=== PATIENT | male | born 1950 | race Caucasian/White ===

== ENCOUNTER 2016-05-10 11:16 | Observation (INO) | payer MEDICARE ==
[2016-05-10] MEDS ORDERED: Morphine INJ* 4 MG/ML 1 ML SYRINGE IV ONE (12:30)
[2016-05-10] MEDS ORDERED: Ondansetron INJ* 2 MG/ML VIAL IV ONE (12:30)
[2016-05-10] MEDS ORDERED: Pantoprazole IV* 40 MG IV ONE (12:30)
[2016-05-10 12:46] LABS: Hematocrit 43 % (42-52); Hemoglobin 14.8 g/dl (14.0-18.0); Mean Corpuscular HGB Conc 34 g/dl (31-36); Mean Corpuscular Hemoglobin 33 pg (27-31); Mean Corpuscular Volume 95 fL (80-94); Mean Platelet Volume 8 um3 (7.4-10.4); Red Blood Count 4.55 10^6/ul (4.0-5.4); Red Cell Distribution Width 14 % (10.5-15); White Blood Count 10.1 10^3/ul (3.5-10.8)
[2016-05-10 12:56] LABS: Albumin 4.2 g/dL (3.2-5.2); BUN/Creatinine Ratio 17.6 (8-20); C Reactive Protein 1.56 mg/L (< 5.00); Calcium 9.6 mg/dL (8.6-10.3); EGFR African American 107.2 (>60); EGFR Non-African American 83.4 (>60); Globulin 2.9 g/dL (2-4); Magnesium 1.6 mg/dL (1.9-2.7); Potassium 3.9 mmol/L (3.5-5.0); Total Bilirubin 0.5 mg/dL (0.2-1.0); Total Protein 7.1 g/dL (6.4-8.9); Troponin I 0.01 ng/mL (<0.04)
[2016-05-10] MEDS: NS 0.9% 1000 ML* 3,000 ML IV ONE ×3 (13:04→15:46)
[2016-05-10] MEDS ORDERED: Iohexol 300* (CONTRAST) 10 ML SDV IV ONE (14:07)
--- NOTE | 2016-05-10 14:29 | RAD ---
INDICATION: Abdominal pain and vomiting. Question pancreatitis and perforated viscus/gallbladder. COMPARISON: October 26, [address] TECHNIQUE: Multidetector CT images were obtained from the lung bases to the ischial tuberosities with 97 IV and oral contrast. Multiplanar reformation. REPORT: Moderate retrocardiac hiatal hernia results in mild subsegmental atelectasis at the medial bilateral lung bases. Lung volumes appear elevated with increased AP thoracic diameter. Typical location focal fatty infiltration at the LEFT lateral hepatic segment flanking the fissure for the ligamentum teres. Upper normal liver size. Negative for biliary dilatation. No CT abnormality of the gallbladder. Patent portal, splenic, and superior mesenteric veins. Unremarkable pancreas and spleen. Aside from the hiatal hernia the upper GI is unremarkable. Negative for CT abnormality of the small bowel, or appendix visualized extending medial from the cecum. A solitary sigmoid diverticulosis visualized. Negative for findings of acute diverticulitis. Negative for ascites or free air. Small fat-containing umbilical hernia without inflammatory change. Small fat-containing direct appearing LEFT inguinal hernia without inflammatory change. Normal adrenal glands. Unremarkable kidneys with symmetric nephrograms and pyelograms. Unremarkable ureters and distended urinary bladder. Enlarged prostate. Symmetric seminal vesicles. Normal sized portal caval lymph node visualized. 0.7 cm short axis RIGHT retrocrural lymph node is unchanged. Negative for lymphadenopathy. Atherosclerotic calcification of normal diameter abdominal aorta and common iliac arteries. Physiologic distention of the IVC. Normal variant retroaortic LEFT renal vein. RIGHT hip prosthesis. Polyarticular degenerative arthropathy. Degenerative spondylosis is prominent at L4-L5. Negative for suspicious focal osseous lesions. IMPRESSION: 1. Moderate retrocardiac hiatal hernia increase in size from the 2008 exam. 2. No evidence for bowel obstruction or acute inflammation of the alimentary tract. Normal appendix documented. 3. No CT abnormality of the gallbladder. Negative for biliary dilatation. Correlate with clinical assessment and consider ultrasound for further assessment if deemed appropriate. 4. Negative for obstructive uropathy.
[2016-05-10] MEDS ORDERED: Metoclopramide IV* 5 MG/ML 2 ML VIAL IV SLOW PU ONE (15:39)
[2016-05-10] MEDS ORDERED: HYDROmorphone* 1 MG/ML 1 ML SYR IV SLOW PU ONE (15:39)
--- NOTE | 2016-05-10 15:48 | ED ---
Jovan Rivas Billy, scribed for Franco Xie MD on 05/10/16 at 1227 . Abdominal Pain/Male - HPI Summary HPI Summary: Patient is a 65 year-old male BIBA to [facility] for evaluation of epigastric pain. Patient woke up at 0200 with a headache and abdominal pain as well as numerous episodes of nausea and vomiting. He states that his headache resolved earlier this morning but his nausea and vomiting persists. Abdominal pain is nonradiating. He reports loose black stools several days ago and denies any iron supplement or pepto-bismol use. Denies chest pain or SOB. His had the same dinner as him last night and has no symptoms. Patient denies any LOC, urinary symptoms, or coffee ground emesis. Patient has a history of ulcers. - History of Current Complaint Chief Complaint: EDAbdPain Stated Complaint: VOMITING Time Seen by Provider: 05/10/16 11:54 Hx Obtained From: Patient Onset/Duration: Gradual Onset, Lasting Hours, Still Present Timing: Constant Severity Initially: Moderate Severity Currently: Moderate Pain Intensity: 5 Pain Scale Used: 0-10 Numeric Location: Epigastric Radiates: No Aggravating Factor(s): Nothing Alleviating Factor(s): Nothing Associated Signs And Symptoms: Positive: Diaphoresis, Nausea, Vomiting. Negative: Back Pain, Urinary Symptoms - Allergies/Home Medications Allergies/Adverse Reactions: Allergies Allergy/AdvReac Type Severity Reaction Status Date / Time No Known Allergies Allergy Verified 10/02/14 10:12 Home Medications: Home Medications Lisinopril TAB* [Prinivil TAB*] 20 mg PO DAILY 05/10/16 [History Confirmed 05/10] Omeprazole CAP* [Prilosec CAP* 20 MG] 20 mg PO DAILY 05/10/16 [History Confirmed 05/10/16] traZODone TAB* [Desyrel TAB*] 100 mg PO BEDTIME 05/10/16 [History Confirmed ] PMH/Surg Hx/FS Hx/Imm Hx GI History: Reports: Hx Ulcer Neurological History: Reports: Hx Headaches - Immunization History Date of Tetanus Vaccine: Unk Date of Influenza Vaccine: None Infectious Disease History: No Infectious Disease History: Denies: Traveled Outside the [place] in Last 30 Days - Family History Family History: Uncle from stroke, mother with AAA. - Social History Alcohol Use: Daily Substance Use Type: Reports: Marijuana Smoking Status (MU): Former Smoker Review of Systems Positive: Chills, Skin Diaphoresis. Negative: Fever Negative: Palpitations, Chest Pain Positive: Abdominal Pain, Vomiting, Nausea Negative: dysuria, frequency, urgency Positive: Headache All Other Systems Reviewed And Are Negative: Yes Physical Exam - Summary Physical Exam Summary: The patient is thin, diaphoretic, pale-looking male in mild distress. Decreased skin turgor. HEENT: The head is normocephalic and atraumatic. The pupils are equal and reactive. The sclerae and conjunctivae are clear, not jaundiced, not pale, and without drainage. Nares are patent and without drainage. Mouth reveals dry mucous membranes and the throat is without erythema and exudate. The external ears are intact. The ear canals are patent and without drainage. The tympanic membranes are intact. Neck is supple with full range of motion and non-tender. There are no carotid bruits. There is no neck vein distension. Respiratory: Chest is non-tender. Lungs are clear to auscultation and breath sounds are symmetrical and equal. Cardiovascular: Hear is regular rate and rhythm. There is no murmur or rub auscultated. There is no peripheral edema and pulses are symmetrical and equal. Abdomen: There is marked epigastric and RUQ tenderness. No tenderness to percussion otherwise. There are decreased bowel sounds heard in all four quadrants and there is no organomegaly palpated. No CVA tenderness. Rectal: Rectal exam revealed brown stool with no masses, melena, or blood appreciated. Musculoskeletal: There is no back pain noted. Tender to right proximal tibia without swelling or deformity. There is 3 sec capillary refill. There is no peripheral edema or calf tenderness elicited. Neurological: Patient is alert and oriented to person, place and time. The patient has symmetrical motor strength in all four extremities. Cranial nerves are grossly intact. Deep tendon reflexes are symmetrical and equal in all four extremities. Psychiatric: The patient has an appropriate affect and does not exhibit any anxiety or depression. Triage Information Reviewed: Yes Vital Signs On Initial Exam: Initial Vitals Temp Pulse Resp BP Pulse Ox 97.1 F 61 12 173/98 98 05/10/16 11:17 05/10/16 11:17 05/10/16 11:17 05/10/16 11:17 03/31/17 11:17 Vital Signs Reviewed: Yes Diagnostics - Vital Signs Vital Signs Temp Pulse Resp BP Pulse Ox 05/10/16 11:17 97.1 F 61 12 173/98 98 - Laboratory Lab Results: Lab Results 05/10/16 05/10/16 05/10/16 Range/Units 11:30 11:30 11:30 WBC 10.1 (3.5-10.8) 10^3/ul RBC 4.55 (4.0-5.4) 10^6/ul Hgb 14.8 (14.0-18.0) g/dl Hct 43 (42-52) % MCV 95 H (80-94) fL MCH 33 H (27-31) pg MCHC 34 (31-36) g/dl RDW 14 (10.5-15) % Plt Count 302 (150-450) 10^3/ul MPV 8 (7.4-10.4) um3 Neut % (Auto) 84.1 H (38-83) % Lymph % (Auto) 11.3 L (25-47) % [place] % (Auto) 3.7 (1-9) % Eos % (Auto) 0.4 (0-6) % Baso % (Auto) 0.5 (0-2) % Absolute Neuts (auto) 8.5 H (1.5-7.7) 10^3/ul Absolute Lymphs (auto) 1.1 (1.0-4.8) 10^3/ul Absolute Monos (auto) 0.4 (0-0.8) 10^3/ul Absolute Eos (auto) 0 (0-0.6) 10^3/ul Absolute Basos (auto) 0.1 (0-0.2) 10^3/ul Absolute Nucleated RBC 0 10^3/ul Nucleated RBC % 0 INR (Anticoag Therapy) (0.89-1.11) Sodium 138 (133-145) mmol/L Potassium 3.9 (3.5-5.0) mmol/L Chloride 104 (101-111) mmol/L Carbon Dioxide 24 (22-32) mmol/L Anion Gap 10 (2-11) mmol/L BUN 16 (6-24) mg/dL Creatinine 0.91 (0.67-1.17) mg/dL Est GFR ( Amer) 107.2 (>60) Est GFR (Non-Af Amer) 83.4 (>60) BUN/Creatinine Ratio 17.6 (8-20) Glucose 174 H (70-100) mg/dL Lactic Acid 2.0 (0.5-2.0) mmol/L Calcium 9.6 (8.6-10.3) mg/dL Magnesium 1.6 L (1.9-2.7) mg/dL Total Bilirubin 0.50 (0.2-1.0) mg/dL AST 15 (13-39) U/L ALT 8 (7-52) U/L Alkaline Phosphatase 69 (34-104) U/L Ammonia (16-53) mol/L Total Creatine Kinase 143 (10-223) U/L Troponin I 0.01 (<0.04) ng/mL C-Reactive Protein 1.56 (< 5.00) mg/L Total Protein 7.1 (6.4-8.9) g/dL Albumin 4.2 (3.2-5.2) g/dL Globulin 2.9 (2-4) g/dL Albumin/Globulin Ratio 1.4 (1-3) Amylase 58 (29-103) U/L Lipase 36 (11.0-82.0) U/L 05/10/16 05/10/16 Range/Units 11:30 11:30 WBC (3.5-10.8) 10^3/ul RBC (4.0-5.4) 10^6/ul Hgb (14.0-18.0) g/dl Hct (42-52) % MCV (80-94) fL MCH (27-31) pg MCHC (31-36) g/dl RDW (10.5-15) % Plt Count (150-450) 10^3/ul MPV (7.4-10.4) um3 Neut % (Auto) (38-83) % Lymph % (Auto) (25-47) % [place] % (Auto) (1-9) % Eos % (Auto) (0-6) % Baso % (Auto) (0-2) % Absolute Neuts (auto) (1.5-7.7) 10^3/ul Absolute Lymphs (auto) (1.0-4.8) 10^3/ul Absolute Monos (auto) (0-0.8) 10^3/ul Absolute Eos (auto) (0-0.6) 10^3/ul Absolute Basos (auto) (0-0.2) 10^3/ul Absolute Nucleated RBC 10^3/ul Nucleated RBC % INR (Anticoag Therapy) 0.93 (0.89-1.11) Sodium (133-145) mmol/L Potassium (3.5-5.0) mmol/L Chloride (101-111) mmol/L Carbon Dioxide (22-32) mmol/L Anion Gap (2-11) mmol/L BUN (6-24) mg/dL Creatinine (0.67-1.17) mg/dL Est GFR ( Amer) (>60) Est GFR (Non-Af Amer) (>60) BUN/Creatinine Ratio (8-20) Glucose (70-100) mg/dL Lactic Acid (0.5-2.0) mmol/L Calcium (8.6-10.3) mg/dL Magnesium (1.9-2.7) mg/dL Total Bilirubin (0.2-1.0) mg/dL AST (13-39) U/L ALT (7-52) U/L Alkaline Phosphatase (34-104) U/L Ammonia 31 (16-53) mol/L Total Creatine Kinase (10-223) U/L Troponin I (<0.04) ng/mL C-Reactive Protein (< 5.00) mg/L Total Protein (6.4-8.9) g/dL Albumin (3.2-5.2) g/dL Globulin (2-4) g/dL Albumin/Globulin Ratio (1-3) Amylase (29-103) U/L Lipase (11.0-82.0) U/L Result Diagrams: 05/10/16 11:30 05/10/16 11:30 Lab Statement: Any lab studies that have been ordered have been reviewed, and results considered in the medical decision making process. - CT abd/pel w CT Interpretation Completed By: Radiologist - 1. Moderate retrocardiac hiatal hernia increase in size from the 2008 exam. 2. No evidence for bowel obstruction or acute inflammation of the alimentary tract. Normal appendix documented. 3. No CT abnormality of the gallbladder. Negative for biliary dilatation. Correlate with clinical assessment and consider ultrasound for further assessment if deemed appropriate. 4. Negative for obstructive uropathy. - EKG 1416 EKG Interpretation: NSR 78 bpm, LAD, nonspecific ST changes, no STEMI Re-Evaluation - Re-Evaluation First Eval Re-Evaluation Time: 15:02 Comment: Labs and imaging reviewed. Patient vomited on re-evaluation, so we will consult hospitalist for admission. Abdominal Pain Fem Course/Dx - Course Assessment/Plan: 65 y/o male coming to the ED for evaluation of abdominal pain and N/V. In the ED course, pt was given morphine, protonix, and zofran. Labs reviewed, troponin is 0.01. CT of the abd/pel showed findings as read by radiologist. EKG shows NSR with LAD and nonspecific ST changes. Patient care discussed with Dr. Meeks, who accepted the patient for admission. - Diagnoses Differential Diagnosis/HQI/PQRI: Appendicitis, Bowel Obstruction, Diverticulitis , Gall Bladder Disease, Pancreatitis, Peptic Ulcer Disease Provider Diagnoses: Abdominal pain, Vomiting, Dehydration - Provider Notifications Discussed Care Of Patient With: Dr. Meeks (hospitalist) @ 1520: accepted admission. Discharge - Discharge Plan Condition: Stable Disposition: ADMITTED TO [facility] documentation as recorded by the Jovan gamble Billy accurately reflects the service I personally performed and the decisions made by me, Franco Xie MD.
[2016-05-10] MEDS ORDERED: Magnesium Sulfate 2 GM IV* 2 GM/50 ML BAG IVPB ONE (16:08)
[2016-05-10] MEDS ORDERED: Ondansetron INJ* 2 MG/ML VIAL IV PRN (17:15)
[2016-05-10] MEDS: NS 0.9% 1000 ML* 1,000 ML IV SCH (17:34)
[2016-05-10] MEDS ORDERED: Pneumococcal Vac Polyvalent* 0.5 ML VIAL IM ONE (19:00)
[2016-05-10] MEDS ORDERED: Influenza VAC *QUAD* 2016-17* 0.5 ML SYRINGE IM ONE (19:00)
[2016-05-10] MEDS ORDERED: traZODone TAB* 100 MG PO SCH (21:00)
[2016-05-10] MEDS: Heparin VIAL(*) 5000 UNITS/ML VIAL (FIVE THOUSAND) SUBCUT SCH (21:28)
--- NOTE | 2016-05-10 22:45 | HP ---
HOSPITAL MEDICINE HISTORY AND PHYSICAL: DATE OF ADMISSION: 05/10/16 PRIMARY CARE PHYSICIAN: Mino Demarco MD ATTENDING PHYSICIAN: Nichole Jack DO* (dictation provided by Katy Daugherty NP) PRIMARY COMPLAINT: Nausea, vomiting, and abdominal pain. HISTORY OF PRESENT ILLNESS: Mr. Jiang is a 65-year-old male with a past medical history of hypertension and GERD who presents today to the hospital with concern for nausea, vomiting, and abdominal pain. Mr. Jiang states that he was in his normal state of health until 2 a.m. this morning when he had the sudden onset of nausea and vomiting associated with abdominal pain in the epigastric region. He vomited multiple times through the night and ultimately decided to come to the emergency room when the pain and the nausea did not resolve. He denies any associated complaints of chest pain and shortness of breath. He has been having some diarrhea, but he states it has been very mild. He has no recent sick contacts. He has no unusual food ingestions as he ate the same thing his has eaten recently and she is not unwell. In the emergency room, Mr. Jiang had a CT of the abdomen and pelvis, which showed no acute abnormalities. He had no acute laboratory abnormalities and his vital signs were stable; however, he continued to have persistent nausea and vomiting and inability to tolerate oral intake with severe pain and therefore, plans are for him to be observed in the hospital overnight. PAST MEDICAL HISTORY: 1. Hypertension. 2. GERD. MEDICATIONS: 1. Lisinopril 20 mg p.o. daily. 2. Omeprazole 20 mg p.o. daily. 3. Trazodone 100 mg p.o. at bedtime. ALLERGIES: No known drug allergies. FAMILY HISTORY: Mother had a brain aneurysm. Father is unknown as they are estranged. SOCIAL HISTORY: The patient is a long-term smoker, but quit 6 weeks ago. Denies any alcohol or drug use. He quit drinking in 1980. He lives with his who is the health care proxy. REVIEW OF SYSTEMS: A 14-point review of systems was completed with Mr. Jiang and all those not mentioned above are negative. PHYSICAL EXAMINATION GENERAL: Mr. Jiang is sitting up in the bed. He is in no acute distress. He is calm and cooperative to my examination. VITAL SIGNS: Temperature 97.1, heart rate 70, respiratory rate 12, O2 saturation 96% on room air, and blood pressure 137/94. LUNGS: Clear to auscultation bilaterally with no accessory muscle use and good aeration. HEART: S1, S2. No murmur, rub, or gallop and regular. ABDOMEN: Soft. He is nontender now, but he has recently been given narcotic for pain relief. Bowel sounds are positive. EXTREMITIES: No cyanosis or edema. NEUROLOGIC: He is alert and oriented x3. He moves all extremities equally. There is no facial asymmetry or focal weakness. Extraocular movements are intact. SKIN: Intact. DIAGNOSTIC STUDIES/LAB DATA: Sodium 138, potassium 3.9, chloride 104, serum bicarbonate 24, BUN 10, creatinine 0.91, glucose 174, lactic acid 2.0, and magnesium 1.6. Troponin 0.01. CRP 1.56. WBC 10.0, hemoglobin 14, hematocrit 43, and platelet count 302. INR 0.93. Abdomen and pelvis CT is read as follows: "Moderate retrocardiac hiatal hernia increased in size from 2008 exam. No evidence for bowel obstruction or acute inflammation of the alimentary tract. Normal appendix documented. No CT abnormalities of gallbladder. Negative for biliary dilatation. Correlate with clinical assessment. Consider ultrasound for better assessment if deemed appropriate. Negative for obstructive uropathy." ASSESSMENT: Mr. Jiang is a 65-year-old male with past medical history of hypertension and gastroesophageal reflux disease who presents to the hospital with concern for nausea, vomiting, and abdominal pain with mild diarrhea. Plans are for observation overnight for the followin. Nausea, vomiting, and abdominal pain with mild diarrhea: I suspect the patient has a mild case of viral gastroenteritis; however, he has had significant vomiting in the emergency room, inability to tolerate oral intake as well as continued abdominal pain. I think he warrants observation in the hospital overnight for symptom management and for the development of anymore significant symptoms. The patient will have Zofran available p.r.n. and pain medications as needed with retained abdominal assessment. 2. Hypertension: Continue lisinopril. 3. DVT prophylaxis: Heparin subcu. 4. Disposition: To medical floor. 5. Code status: Full code. TIME SPENT: Approximately 60 minutes was spent in the admission of this patient , more than half of the time was spent with the patient at the bedside reviewing the events leading up to this hospitalization, performing the physical examination, and reviewing my plan of care. KATY DAUGHERTY NP CC: Dr. Mino Demarco* [id number]/[facility] #: [id number] [place]
[2016-05-11] MEDS ORDERED: Acetaminophen TAB* 325 MG PO PRN (03:02)
[2016-05-11] MEDS: Heparin VIAL(*) 5000 UNITS/ML VIAL (FIVE THOUSAND) SUBCUT SCH (06:01)
[2016-05-11] MEDS: NS 0.9% 1000 ML* 1,000 ML IV SCH (06:04)
[2016-05-11 06:24] LABS: Urine Bilirubin Negative (Negative); Urine Glucose Negative (Negative); Urine Nitrite Negative (Negative)
[2016-05-11 07:59] VITALS: BP 146/89
[2016-05-11] MEDS ORDERED: Omeprazole CAP* 20 MG PO SCH (09:00)
[2016-05-11] MEDS ORDERED: Lisinopril TAB* 10 MG PO SCH (09:00)
--- NOTE | 2016-05-11 10:30 | PN ---
Subjective Date of Service: 05/11/16 Interval History: Mr. Jiang states that he is feeling well this morning. He denies nausea, vomiting, or abdominal pain and is eager for discharge to home. Objective Active Medications: Acetaminophen (Tylenol Tab*) 650 mg PO Q4H PRN Heparin Sodium (Porcine) (Heparin Vial(*)) 5,000 units SUBCUT Q8HR MARIA C Sodium Chloride (Ns 0.9% 1000 Ml*) 1,000 mls @ 100 mls/hr IV PER RATE MARIA C Lisinopril (Prinivil Tab*) 20 mg PO DAILY MARIA C Omeprazole (Prilosec Cap*) 20 mg PO DAILY MARIA C Ondansetron HCl (Zofran Inj*) 4 mg IV Q6H PRN Trazodone HCl (Desyrel Tab*) 100 mg PO BEDTIME MARIA C Vital Signs 05/10/16 05/10/16 05/10/16 15:46 16:00 17:38 Temperature 98.4 F Pulse Rate 70 57 Respiratory 18 12 16 Rate Blood Pressure 146/99 (mmHg) O2 Sat by Pulse 96 100 Oximetry 05/10/16 05/10/16 05/11/16 19:22 23:34 03:48 Temperature 98.3 F 98.5 F 98.5 F Pulse Rate 72 58 62 Respiratory 18 16 20 Rate Blood Pressure 146/89 138/79 149/81 (mmHg) O2 Sat by Pulse 100 98 93 Oximetry 05/11/16 07:40 Temperature 98.0 F Pulse Rate 50 Respiratory 16 Rate Blood Pressure 146/89 (mmHg) O2 Sat by Pulse 96 Oximetry Oxygen Devices in Use Now: None Appearance: Male sitting up in bed in NAD Respiratory: Symmetrical Chest Expansion and Respiratory Effort, Clear to Auscultation Cardiovascular: NL Sounds; No Murmurs; No JVD, No Edema Abdominal: NL Sounds; No Tenderness; No Distention Extremities: No Edema Skin: No Rash or Ulcers Neurological: Alert and Oriented x 3, NL Muscle Strength and Tone Nutrition: Taking PO's Result Diagrams: 05/10/16 11:30 05/10/16 11:30 Additional Lab and Data: Lab Results 05/10/16 05/10/16 05/10/16 Range/Units 11:30 11:30 11:30 WBC 10.1 (3.5-10.8) 10^3/ul RBC 4.55 (4.0-5.4) 10^6/ul Hgb 14.8 (14.0-18.0) g/dl Hct 43 (42-52) % MCV 95 H (80-94) fL MCH 33 H (27-31) pg MCHC 34 (31-36) g/dl RDW 14 (10.5-15) % Plt Count 302 (150-450) 10^3/ul MPV 8 (7.4-10.4) um3 Neut % (Auto) 84.1 H (38-83) % Lymph % (Auto) 11.3 L (25-47) % Kane % (Auto) 3.7 (1-9) % Eos % (Auto) 0.4 (0-6) % Baso % (Auto) 0.5 (0-2) % Absolute Neuts (auto) 8.5 H (1.5-7.7) 10^3/ul Absolute Lymphs (auto) 1.1 (1.0-4.8) 10^3/ul Absolute Monos (auto) 0.4 (0-0.8) 10^3/ul Absolute Eos (auto) 0 (0-0.6) 10^3/ul Absolute Basos (auto) 0.1 (0-0.2) 10^3/ul Absolute Nucleated RBC 0 10^3/ul Nucleated RBC % 0 INR (Anticoag Therapy) (0.89-1.11) Sodium 138 (133-145) mmol/L Potassium 3.9 (3.5-5.0) mmol/L Chloride 104 (101-111) mmol/L Carbon Dioxide 24 (22-32) mmol/L Anion Gap 10 (2-11) mmol/L BUN 16 (6-24) mg/dL Creatinine 0.91 (0.67-1.17) mg/dL Est GFR ( Amer) 107.2 (>60) Est GFR (Non-Af Amer) 83.4 (>60) BUN/Creatinine Ratio 17.6 (8-20) Glucose 174 H (70-100) mg/dL Lactic Acid 2.0 (0.5-2.0) mmol/L Calcium 9.6 (8.6-10.3) mg/dL Magnesium 1.6 L (1.9-2.7) mg/dL Total Bilirubin 0.50 (0.2-1.0) mg/dL AST 15 (13-39) U/L ALT 8 (7-52) U/L Alkaline Phosphatase 69 (34-104) U/L Ammonia (16-53) mol/L Total Creatine Kinase 143 (10-223) U/L Troponin I 0.01 (<0.04) ng/mL C-Reactive Protein 1.56 (< 5.00) mg/L Total Protein 7.1 (6.4-8.9) g/dL Albumin 4.2 (3.2-5.2) g/dL Globulin 2.9 (2-4) g/dL Albumin/Globulin Ratio 1.4 (1-3) Amylase 58 (29-103) U/L Lipase 36 (11.0-82.0) U/L 05/10/16 05/10/16 Range/Units 11:30 11:30 WBC (3.5-10.8) 10^3/ul RBC (4.0-5.4) 10^6/ul Hgb (14.0-18.0) g/dl Hct (42-52) % MCV (80-94) fL MCH (27-31) pg MCHC (31-36) g/dl RDW (10.5-15) % Plt Count (150-450) 10^3/ul MPV (7.4-10.4) um3 Neut % (Auto) (38-83) % Lymph % (Auto) (25-47) % Kane % (Auto) (1-9) % Eos % (Auto) (0-6) % Baso % (Auto) (0-2) % Absolute Neuts (auto) (1.5-7.7) 10^3/ul Absolute Lymphs (auto) (1.0-4.8) 10^3/ul Absolute Monos (auto) (0-0.8) 10^3/ul Absolute Eos (auto) (0-0.6) 10^3/ul Absolute Basos (auto) (0-0.2) 10^3/ul Absolute Nucleated RBC 10^3/ul Nucleated RBC % INR (Anticoag Therapy) 0.93 (0.89-1.11) Sodium (133-145) mmol/L Potassium (3.5-5.0) mmol/L Chloride (101-111) mmol/L Carbon Dioxide (22-32) mmol/L Anion Gap (2-11) mmol/L BUN (6-24) mg/dL Creatinine (0.67-1.17) mg/dL Est GFR ( Amer) (>60) Est GFR (Non-Af Amer) (>60) BUN/Creatinine Ratio (8-20) Glucose (70-100) mg/dL Lactic Acid (0.5-2.0) mmol/L Calcium (8.6-10.3) mg/dL Magnesium (1.9-2.7) mg/dL Total Bilirubin (0.2-1.0) mg/dL AST (13-39) U/L ALT (7-52) U/L Alkaline Phosphatase (34-104) U/L Ammonia 31 (16-53) mol/L Total Creatine Kinase (10-223) U/L Troponin I (<0.04) ng/mL C-Reactive Protein (< 5.00) mg/L Total Protein (6.4-8.9) g/dL Albumin (3.2-5.2) g/dL Globulin (2-4) g/dL Albumin/Globulin Ratio (1-3) Amylase (29-103) U/L Lipase (11.0-82.0) U/L Assess/Plan/Problems-Billing Assessment: Mr. Jiang is a 65 yo male with a PMH of hypertension who was admitted on with concern for intractable nausea/vomiting with viral gastroenteritis. - Patient Problems (1) Gastroenteritis Comment: Resolved. (2) Hypertension Comment: Continue lisinopril. Status and Disposition: OBV. Discharge to home.
--- NOTE | 2016-05-12 03:15 | DS ---
HOSPITAL MEDICINE DISCHARGE SUMMARY: DATE OF ADMISSION: 05/10/16 DATE OF DISCHARGE: 05/11/16 PRIMARY CARE PHYSICIAN: Mino Demarco MD ATTENDING PHYSICIAN: Nichole Jack DO *(dictation provided by Katy Daugherty NP) PRIMARY DIAGNOSIS: Viral gastroenteritis, resolved. SECONDARY DIAGNOSES: 1. Hypertension. 2. Gastroesophageal reflux disease. MEDICATIONS AT THE TIME OF DISCHARGE: 1. Lisinopril 20 mg p.o. daily. 2. Omeprazole 20 mg p.o. daily. 3. Trazodone 100 mg p.o. at bedtime. HOSPITAL COURSE: Mr. Jiang is a 65-year-old male with a past medical history of hypertension and GERD who presented to the emergency room on 05/10/16 after a sudden onset of nausea, vomiting, and abdominal pain. Please see the dictated H and P from myself for complete details. In brief, the patient had awoken at 2 a.m. with a sudden onset of nausea and vomiting associated with pain in the epigastric region. In emergency room, he had a CT of his abdomen and pelvis, which showed "moderate retrocardiac hiatal hernia, increased in size from 2008 exam. No evidence of bowel obstruction or acute inflammation of the alimentary tract. Normal appendix documented. No CT abnormalities of the gallbladder. Negative for biliary dilatation. Negative for obstructive uropathy." The patient had no leukocytosis or fever. Based on the severity of his intractable nausea and vomiting and ongoing abdominal pain, he was placed on observation in the hospital. Mr. Jiang did well through the night. He had no further nausea and vomiting. His abdominal pain is resolved. I suspect the symptoms are related to viral gastroenteritis. He is medically stable for the discharge to home. His vital signs are stable. DISPOSITION: Home. DIET: Low salt. ACTIVITY: As tolerated. FOLLOWUP PLAN: Please follow up with Dr. Demarco per routine, status post the patient's stay in the hospital. TIME SPENT: Approximately 60 minutes was spent in the discharge of this patient , more than half of the time was spent with the patient at the bedside reviewing the events leading up to this hospitalization, performing the physical examination, and reviewing my plan of care. KATY DAUGHERTY NP CC: Mino Demarco MD* [id number]/[facility] #: [id number] [place]
== END 2016-05-11 11:12 | disposition home or self-care (01) ==
LOC: ED 11:16 → MEDTELE 15:21
PROVIDERS: ADMIT Internal Medicine; ATTEND Hospitalist
DX: A08.4 Viral intestinal infection, unspecified (principal); I10 Essential (primary) hypertension; K21.9 Gastro-esophageal reflux disease without esophagitis; Z87.891 Personal history of nicotine dependence
CPT/HCPCS: 36415; 74177; 80053; 81003; 82140; 82150; 82272; 82550; 83605; 83690; 83735; 84484; 85025; 85610; 86140; 90686; 90732; 93005; 96374; 96375; 99283; A9270-GY; G0378; J1170; J1644; J2270; J2405; Q9967

== ENCOUNTER 2017-01-21 15:37 | Emergency (ER) | payer MEDICARE ==
[2017-01-21 17:22] LABS: Hematocrit 43 % (42-52); Hemoglobin 14.5 g/dl (14.0-18.0); Mean Corpuscular HGB Conc 33 g/dl (31-36); Mean Corpuscular Hemoglobin 32 pg (27-31); Mean Corpuscular Volume 96 fL (80-94); Mean Platelet Volume 8 um3 (7.4-10.4); Red Blood Count 4.54 10^6/ul (4.0-5.4); Red Cell Distribution Width 14 % (10.5-15); White Blood Count 6.4 10^3/ul (3.5-10.8)
[2017-01-21] MEDS ORDERED: Diazepam TAB(*) 5 MG PO ONE (17:34)
[2017-01-21] MEDS ORDERED: Ibuprofen TAB* 600 MG PO ONE (17:34)
[2017-01-21 17:36] LABS: ALT 9 U/L (7-52); AST 16 U/L (13-39); Albumin 4.1 g/dL (3.2-5.2); Alkaline Phosphatase 66 U/L (34-104); Anion Gap 7 mmol/L (2-11); BUN/Creatinine Ratio 13.4 (8-20); Blood Urea Nitrogen 15 mg/dL (6-24); CO2 Carbon Dioxide 24 mmol/L (22-32); Chloride 105 mmol/L (101-111); EGFR African American 84.1 (>60); EGFR Non-African American 65.4 (>60); Globulin 2.9 g/dL (2-4); Glucose 111 mg/dL (70-100); Potassium 3.8 mmol/L (3.5-5.0); Sodium 136 mmol/L (133-145)
--- NOTE | 2017-01-21 17:40 | RAD ---
INDICATION: Headache. COMPARISON: Comparison is made with a prior study from October 02, 2014. TECHNIQUE: Contiguous axial sections of the brain were obtained from the skull base to the vertex without contrast. FINDINGS: The ventricles, cisterns and sulci are within normal limits. There are small areas of decreased density in the subcortical and periventricular white matter suggestive of mild chronic small vessel ischemic changes. No other focal abnormality or mass effect is seen. There is no evidence for hemorrhage. No significant focal osseous abnormality is seen. The visualized portion of the paranasal sinuses appear clear. IMPRESSION: 1. NO EVIDENCE FOR ACUTE INTRACRANIAL ABNORMALITY. 2. FINDINGS SUGGESTIVE OF MILD CHRONIC SMALL VESSEL ISCHEMIC CHANGES.
[2017-01-21 17:59] LABS: Acetaminophen < 15 mcg/mL; Alcohol < 10 mg/dL (<10)
[2017-01-21 18:15] LABS: TSH (Thyroid Stimulating Horm) 3.27 mcIU/mL (0.34-5.60)
[2017-01-21 19:55] LABS: Urine Bilirubin Negative (Negative); Urine Glucose Negative (Negative); Urine Nitrite Negative (Negative)
[2017-01-21 20:04] VITALS: BP 134/86
[2017-01-21 20:05] LABS: Benzodiazepine Urine Screen None Detected (None Detect)
--- NOTE | 2017-01-21 21:47 | ED ---
Abrahan Rivas Nilda, scribed for Art Barrett MD on 01/21/17 at 1832 . Headache - HPI Summary HPI Summary: This patient is a 66 year old M presenting to [facility] accompanied by with a chief complaint of constant headache (pressure) that "wraps around his head" for the past few weeks. 2 weeks ago pt states the top of his head felt soft and painful, but these symptoms have resolved. The patient rates the pain 1/10 in severity. Symptoms aggravated by recent cessation in smoking. Symptoms alleviated by Excedrin taken SHIPPING WEIGHER. Patient reports anxiety regarding the state of the news and war as well as lightheadedness. Per , pt has had recent loss of appetite. Patient denies SI, body aches, auditory hallucinations, nausea , dizziness, CP, pressure or heaviness on chest, and photophobia. Pt admits to smoking marijuana that he grows himself. Medications include Doxycycline for a rash that appeared on his right forearm. Pt states he quit smoking 4 months ago cold turkey, without the help of Chantix or PCP, stating that quitting smoking may be the source of many of his issues. Pt states he scheduled an appointment with PCP on 01/27. - History Of Current Complaint Chief Complaint: EDHeadache Stated Complaint: HEADACHE Time Seen by Provider: 01/21/17 16:54 Hx Obtained From: Patient Onset/Duration: Sudden Onset Currently Pain Is: Current Pain Scale(0-10)= - 1 Timing: Constant Character: Pressure Location of Headache: Diffuse - wraps around head Aggravating Factor: Nothing Allevating Factors: Medication - Excedrin Associated Signs And Symptoms: Other (Noted In Comments) - anxiety regarding the state of the news and war as well as lightheadedness. Per , pt has had recent loss of appetite. Patient denies SI, body aches, auditory hallucinations , nausea, dizziness, CP, pressure or heaviness on chest, and photophobia. - Allergies/Home Medications Allergies/Adverse Reactions: Allergies Allergy/AdvReac Type Severity Reaction Status Date / Time Zolpidem [From Ambien] Allergy Rash Verified 01/21/17 15:43 Home Medications: Home Medications DOXYcycline CAP(*) [DOXYcycline 100MG CAP(*)] 100 mg PO BID 01/21/17 [History Confirmed 01/21/17] Lisinopril TAB* [Prinivil TAB*] 20 mg PO DAILY 01/21/17 [History Confirmed 01/21] Pravastatin (NF) [Pravachol (NF)] 20 mg PO BEDTIME 01/21/17 [History Confirmed 01/21/17] PMH/Surg Hx/FS Hx/Imm Hx Endocrine/Hematology History: Denies: Hx Diabetes Cardiovascular History: Reports: Hx Hypertension GI History: Reports: Hx Ulcer Sensory History: Denies: Hx Contacts or Glasses, Hx Hearing Aid Opthamlomology History: Denies: Hx Contacts or Glasses Neurological History: Reports: Hx Headaches - Surgical History Surgery Procedure, Year, and Place: HERNIA REPAIR, RT TOTAL HIP - Immunization History Date of Tetanus Vaccine: Unk Date of Influenza Vaccine: None Infectious Disease History: No Infectious Disease History: Denies: Traveled Outside the [place] in Last 30 Days - Family History Known Family History: Negative: Hypertension, Diabetes Family History: Uncle from stroke, mother with AAA. - Social History Lives: With Family Alcohol Use: None Alcohol Amount: pt quit drinking in 1980 Substance Use Type: Reports: Marijuana Smoking Status (MU): Former Smoker Review of Systems Negative: Fever, Chills Negative: Photophobia, Erythema Negative: Sore Throat Negative: Chest Pain Negative: Shortness Of Breath, Cough Negative: Abdominal Pain, Nausea Negative: dysuria, hematuria Positive: Other - negative body aches. Negative: Myalgia, Edema Negative: Rash Neurological: Other - lightheadedness; negative dizziness Positive: Headache Psychological: Other - negative SI, auditory hallucinations Positive: Anxious All Other Systems Reviewed And Are Negative: Yes Physical Exam - Summary Physical Exam Summary: Constitutional: Well-developed, Well-nourished, Alert. (-) Distressed Skin: Warm, Dry HENT: Normocephalic; Atraumatic Eyes: Conjunctiva normal Neck: Musculoskeletal ROM normal neck. (-) JVD, (-) Stridor, (-) Tracheal deviation Cardio: Rhythm regular, rate normal, Heart sounds normal; Intact distal pulses; The pedal pulses are 2+ and symmetric. Radial pulses are 2+ and symmetric. (-) Murmur Pulmonary/Chest wall: Effort normal. (-) Respiratory distress, (-) Wheezes, (-) Rales Abd: Soft, (-) Tenderness, (-) Distension, (-) Guarding, (-) Rebound Musculoskeletal: (-) Edema Lymph: (-) Cervical adenopathy Neuro: Alert, Oriented x3 Psych: Anxious appearing Triage Information Reviewed: Yes Vital Signs On Initial Exam: Initial Vitals Temp Pulse Resp BP Pulse Ox 97.9 F 56 20 145/103 96 01/21/17 15:44 01/21/17 15:44 01/21/17 15:44 01/21/17 15:44 01/21/17 15:44 Vital Signs Reviewed: Yes - Phyllis Coma Scale Best Eye Response: 4 - Spontaneous Best Motor Response: 6 - Obeys Commands Best Verbal Response: 5 - Oriented Diagnostics - Vital Signs Vital Signs Temp Pulse Resp BP Pulse Ox 01/21/17 15:44 97.9 F 56 20 145/103 96 - Laboratory Result Diagrams: 01/21/17 17:10 01/21/17 17:10 Lab Statement: Any lab studies that have been ordered have been reviewed, and results considered in the medical decision making process. - CT Brain CT Interpretation Completed By: Radiologist - CT Brain, per radiologist, reveals 1. NO EVIDENCE FOR ACUTE INTRACRANIAL ABNORMALITY. 2. FINDINGS SUGGESTIVE OF MILD CHRONIC SMALL VESSEL ISCHEMIC CHANGES. Dr. Barrett has reviewed this radiology report. Re-Evaluation - Re-Evaluation First Eval Re-Evaluation Time: 18:31 Comment: Pt has not received medication yet. Reviewed labs and imaging with pt. Second Eval Re-Evaluation Time: 19:40 Comment: Pt feels better. Advised to take Ibuprofen prn and follow up with Dr. Demarco. Pt agreeable to D/C. Headache Course/Dx - Course Assessment/Plan: This patient is a 66 year old M presenting to [facility] accompanied by with a chief complaint of constant headache (pressure) that wraps around his head for the past few weeks. 2 weeks ago pt states the top of his head felt soft and painful, but these symptoms have resolved. The patient rates the pain 1/10 in severity. Symptoms aggravated by recent cessation in smoking. Symptoms alleviated by Excedrin taken SHIPPING WEIGHER. Patient reports anxiety regarding the state of the news and war as well as lightheadedness. Per , pt has had recent loss of appetite. Patient denies SI, body aches, auditory hallucinations, nausea, dizziness, CP, pressure or heaviness on chest, and photophobia. Pt admits to smoking marijuana that he grows himself. Medications include Doxycycline for a rash that appeared on his right forearm. Pt states he quit smoking 4 months ago cold turkey, without the help of Chantix or PCP, stating that quitting smoking may be the source of many of his issues. Pt states he scheduled an appointment with PCP for 01/27. CT Brain, per radiologist, reveals 1. NO EVIDENCE FOR ACUTE INTRACRANIAL ABNORMALITY. 2. FINDINGS SUGGESTIVE OF MILD CHRONIC SMALL VESSEL ISCHEMIC CHANGES. Dr. Barrett has reviewed this radiology report. During ED Course, administered Valium and Ibuprofen. Pt is stable and will be D/C with a Dx of anxiety, nicotine cravings , and headache. Pt advised to follow up with Dr. Demarco in 2-3 days and to take Ibuprofen prn. - Diagnoses Provider Diagnoses: Anxiety, nicotine cravings , Headache Discharge - Discharge Plan Condition: Stable Disposition: HOME Prescriptions: Diazepam TAB(*) [Valium TAB(*)] 2 mg PO BEDTIME PRN #5 tab MDD 1 PRN Reason: Agitation/Anxiety Patient Education Materials: How to Stop Smoking (ED), Acute Headache (ED), Anxiety (ED) Referrals: Mino Demarco MD [Primary Care Provider] - 2 Days Additional Instructions: RETURN TO THE EMERGENCY DEPARTMENT FOR CHANGING OR WORSENING SYMPTOMS. The documentation as recorded by the Abrahan gamble Nilda accurately reflects the service I personally performed and the decisions made by , Art Barrett MD.
== END 2017-01-21 20:04 | disposition home or self-care (01) ==
LOC: ED 15:37
DX: R51 Headache (principal); F17.213 Nicotine dependence, cigarettes, with withdrawal; F41.9 Anxiety disorder, unspecified; Z87.891 Personal history of nicotine dependence
CPT/HCPCS: 36415; 70450; 80053; 80307; 80320; 80329; 81003; 84443; 85025; 86618; 99283; A9270-GY; G0480

== ENCOUNTER 2017-09-26 12:59 | Emergency (ER) | payer MEDICARE ==
[2017-09-26 13:14] VITALS: BP 156/93
--- NOTE | 2017-09-26 13:30 | UC ---
Hypertension HPI - HPI Summary HPI Summary: The patient is a 67-year-old male who presents because his blood pressure has been consistently high. He states that his blood pressure has run high every time he' s checked it for approximately 4-8 weeks. His typical readings were between 150 and 170 [id number]. He has no chest pain or shortness of breath. He is a smoker. His antihypertensive regimen has not recently been changed. He has chronic headaches and they have not changed in nature. - History of Current Complaint Chief Complaint: UCGeneralIllness Stated Complaint: HIGH BLOOD PRESSURE Time Seen by Provider: 09/26/17 13:07 Hx Obtained From: Patient Onset/Duration: Gradual Onset, Lasting Weeks Timing: Constant Aggravating Factor(s): Nothing Alleviating Factor(s): Nothing Associated Signs And Symptoms: Negative: Chest Pain, Vision Changes, Anxiety, Recent Stress, Numbness, Tingling, Weakness, Dizziness, SOB, Swelling Current Medications: ACEI, Ca [place] - Allergies/Home Medications Allergies/Adverse Reactions: Allergies Allergy/AdvReac Type Severity Reaction Status Date / Time zolpidem [From Ambien] Allergy confusion Verified 09/26/17 13:15 Home Medications: Home Medications Tramadol HCl 50 mg PO DAILY 09/26/17 [History Confirmed 09/26/17] amLODIPine TAB* [Norvasc 5 mg TAB*] 2.5 mg PO DAILY 09/26/17 [History Confirmed 09/26/17] PMH/Surg Hx/FS Hx/Imm Hx Endocrine History: Dyslipidemia Cardiovascular History: Hypertension GI/ History: Gastroesophageal Reflux - Surgical History Surgical History: Yes Surgery Procedure, Year, and Place: HERNIA REPAIR, RT TOTAL HIP - Family History Known Family History: Negative: Hypertension, Diabetes Family History: Uncle from stroke, mother with AAA. - Social History Alcohol Use: None Alcohol Amount: pt quit drinking in 1980 Substance Use Type: Marijuana Substance Use Comment - Amount & Last Used: daily x 50 years Smoking Status (MU): Light Every Day Tobacco Smoker Type: Cigarettes Have You Smoked in the Last Year: Yes Household Exposure Type: Cigarettes Review of Systems Constitutional: Negative Skin: Negative Eyes: Negative ENT: Negative Respiratory: Negative Cardiovascular: Negative Gastrointestinal: Negative Genitourinary: Negative Motor: Negative Neurovascular: Negative Musculoskeletal: Negative Neurological: Negative Psychological: Negative Is Patient Immunocompromised?: No All Other Systems Reviewed And Are Negative: Yes Physical Exam Triage Information Reviewed: Yes Appearance: Well-Appearing, No Pain Distress, Well-Nourished Vital Signs: Initial Vital Signs Temp 98.8 F 09/26/17 13:10 Pulse 70 09/26/17 13:10 Resp 16 09/26/17 13:10 BP 156/93 09/26/17 13:10 Pulse Ox 97 09/26/17 13:10 Vital Signs Reviewed: Yes Eyes: Positive: Conjunctiva Clear ENT: Positive: Hearing grossly normal. Negative: Nasal congestion, Nasal drainage, Trismus, Muffled voice, Hoarse voice Neck: Positive: Supple, Nontender, No Lymphadenopathy Respiratory: Positive: No respiratory distress, No accessory muscle use, Wheezing - scatterred Cardiovascular: Positive: RRR Musculoskeletal: Positive: ROM Intact, No Edema Neurological: Positive: Alert Psychological Exam: Normal Skin Exam: Normal Hypertension Course/Dx - Differential Dx/Diagnosis Provider Diagnoses: hypertension Discharge - Sign-Out/Discharge Documenting (check all that apply): Patient Departure - Discharge Plan Condition: Stable Disposition: HOME Patient Education Materials: Hypertension (ED) Referrals: Mino Demarco MD [Primary Care Provider] - 2 Weeks Additional Instructions: increase your amlodopine to 5 mg daily (take two of the 2.5 mg tables a day) - Billing Disposition and Condition Condition: STABLE Disposition: Home
== END 2017-09-26 13:35 | disposition home or self-care (01) ==
LOC: UCEAST 12:59
DX: I10 Essential (primary) hypertension (principal); Z88.8 Allergy status to other drugs, medicaments and biological substances; F17.210 Nicotine dependence, cigarettes, uncomplicated
CPT/HCPCS: 99212; G0463

== ENCOUNTER 2017-12-25 07:53 | Observation (INO) | payer MEDICARE ==
[2017-12-25] MEDS ORDERED: Ondansetron INJ* 2 MG/ML VIAL IV ONE (08:08)
[2017-12-25] MEDS ORDERED: NS 0.9% 1000 ML* 1,000 ML IV ONE (08:08)
--- NOTE | 2017-12-25 08:23 | ED ---
Shortness of Breath - HPI Summary HPI Summary: This patient is a 82 year old M brought in by EMS to [facility] with a chief complaint of SOB since she woke up this morning. EMS reports the patient is usually on 2L NC at night but recently not only has she been wearing it during the day but she has slowly increasing the flow of the O2. They also report that on arrival her O2 sat was 85% and when placed on 5L NC all sx improved and her sat mara to 98%. The patient rates the pain 0/10 in severity. Patient reports mild LLE edema. Patient denies cough, CP, fever, chills, n/v/d, constipation, ABD distension (beyond baseline), ABD pain, and LE pain. She is taking her sodium pills as prescribed. - History of Current Complaint Chief Complaint: EDNauseaVomitDiarrh Time Seen by Provider: 12/25/17 08:06 Hx Obtained From: Patient Onset/Duration: Lasting Hours, Still Present Timing: Constant Current Severity: Moderate Dyspnea At: Rest Alleviating Factors: EMS Tx Associated Signs & Symptoms: Negative - cough, CP, fever, chills, n/v/d, constipation, ABD distension (beyond baseline), ABD pain, and LE pain. - Allergy/Home Medications Allergies/Adverse Reactions: Allergies Allergy/AdvReac Type Severity Reaction Status Date / Time zolpidem [From Ambien] Allergy confusion Verified 12/25/17 07:57 PMH/Surg Hx/FS Hx/Imm Hx Endocrine/Hematology History: Denies: Hx Diabetes Cardiovascular History: Reports: Hx Hypertension - on meds GI History: Reports: Hx Ulcer Sensory History: Denies: Hx Contacts or Glasses, Hx Hearing Aid Opthamlomology History: Denies: Hx Contacts or Glasses Neurological History: Reports: Hx Headaches - Surgical History Surgery Procedure, Year, and Place: HERNIA REPAIR, RT TOTAL HIP - Immunization History Date of Tetanus Vaccine: Unk Date of Influenza Vaccine: None Infectious Disease History: No Infectious Disease History: Denies: Traveled Outside the [place] in Last 30 Days - Family History Known Family History: Negative: Hypertension, Diabetes Family History: Uncle from stroke, mother with AAA. - Social History Alcohol Use: None Alcohol Amount: pt quit drinking in 1980 Substance Use Type: Reports: Marijuana Substance Use Comment - Amount & Last Used: daily x 50 years Smoking Status (MU): Light Every Day Tobacco Smoker Type: Cigarettes Have You Smoked in the Last Year: Yes Review of Systems Negative: Fever, Chills Negative: Chest Pain Positive: Shortness Of Breath. Negative: Cough Gastrointestinal: Negative - constipation, ABD distension (beyond baseline), Negative: Abdominal Pain, Vomiting, Diarrhea, Nausea Musculoskeletal: Negative - LE pain Positive: Edema All Other Systems Reviewed And Are Negative: Yes Physical Exam - Summary Physical Exam Summary: VITAL SIGNS: Reviewed. GENERAL: Patient is a well-developed and elderly female who is lying comfortable in the stretcher. Patient is not in any acute respiratory distress. HEAD AND FACE: No signs of trauma. No ecchymosis, hematomas or skull depressions. No sinus tenderness. EYES: PERRLA, EOMI x 2, No injected conjunctiva, no nystagmus. EARS: Hearing grossly intact. Ear canals and tympanic membranes are within normal limits. MOUTH: Oropharynx within normal limits. NECK: Supple, trachea is midline, no adenopathy, no JVD, no carotid bruit, no c- spine tenderness, neck with full ROM. CHEST: Symmetric, no tenderness at palpation LUNGS: coarse breath sounds bilaterally CVS: Regular rate and rhythm, S1 and S2 present, no murmurs or gallops appreciated. ABDOMEN: Soft, non-tender. Chronic distension. No rebound no guarding, and no masses palpated. Bowel sounds are normal. EXTREMITIES: FROM in all major joints, the LLE is swollen in comparison to the right. NEURO: Alert and oriented x 3. No acute neurological deficits. Speech is normal and follows commands. SKIN: wound in the RLE Triage Information Reviewed: Yes Vital Signs On Initial Exam: Initial Vitals Temp Pulse Resp BP Pulse Ox 97.6 F 96 16 163/117 96 12/25/17 07:54 12/25/17 07:54 12/25/17 07:54 12/25/17 07:54 12/25/17 07:54 Vital Signs Reviewed: Yes Diagnostics - Vital Signs Vital Signs Temp Pulse Resp BP Pulse Ox 12/25/17 07:54 97.6 F 96 16 163/117 96 - Laboratory Lab Statement: Any lab studies that have been ordered have been reviewed, and results considered in the medical decision making process. Discharge - Discharge Plan Referrals: Mino Demarco MD [Primary Care Provider] - - Attestation Statements Document Initiated by Scribe: Yes Documenting Scribe: Arnaud Rosenbaum Provider For Whom Scribe is Documenting (Include Credential): Kt Thurman MD Scribe Attestation: IArnaud , scribed for Kt Thurman MD on 12/25/17 at 0822.
[2017-12-25 08:32] LABS: ABS Basophils 0 10^3/ul (0-0.2); ABS Eosinophils 0 10^3/ul (0-0.6); ABS Lymphocytes 0.8 10^3/ul (1.0-4.8); ABS Monocytes 0.4 10^3/ul (0-0.8); ABS Neutrophils 12.3 10^3/ul (1.5-7.7); ABS Nucleated RBC 0 10^3/ul; Eosinophil % 0.1 % (0-6); Hematocrit 46 % (42-52); Lymphocyte % 5.7 % (25-47); Mean Corpuscular HGB Conc 35 g/dl (31-36); Mean Corpuscular Hemoglobin 33 pg (27-31); Mean Corpuscular Volume 94 fL (80-94); Mean Platelet Volume 7.5 fL (7.4-10.4); Nucleated Red Blood Cells % 0.1; Platelet Count 296 10^3/ul (150-450); Red Blood Count 4.91 10^6/ul (4.00-5.40); Red Cell Distribution Width 14 % (10.5-15); White Blood Count 13.5 10^3/ul (3.5-10.8)
--- NOTE | 2017-12-25 08:38 | ED ---
Abdominal Pain/Male - HPI Summary HPI Summary: This patient is a 67 year old M presenting to [facility] accompanied by a female with a chief complaint of epigastric pain that began last night. The patient rates the pain 8/10 in severity. Patient reports n/v that lasted all night. Patient denies diarrhea and constipation. Last BM was two days ago but states that he does not use the bathroom every day. He states he has been passing gas. Hx HTN, GERD, insomnia, and is a smoker. He smokes marijuana every day and has had these sx in the past. - History of Current Complaint Chief Complaint: EDNauseaVomitDiarrh Stated Complaint: VOMITING Time Seen by Provider: 12/25/17 08:06 Hx Obtained From: Patient Onset/Duration: Lasting Hours, Still Present Timing: Constant Severity Initially: Moderate Severity Currently: Moderate Pain Intensity: 8 Pain Scale Used: 0-10 Numeric Location: Epigastric Radiates: No Associated Signs And Symptoms: Positive: Negative - diarrhea and constipation. - Allergies/Home Medications Allergies/Adverse Reactions: Allergies Allergy/AdvReac Type Severity Reaction Status Date / Time zolpidem [From Ambien] Allergy confusion Verified 12/25/17 07:57 PMH/Surg Hx/FS Hx/Imm Hx Endocrine/Hematology History: Denies: Hx Diabetes Cardiovascular History: Reports: Hx Hypertension - on meds Denies: Hx Congestive Heart Failure GI History: Reports: Hx Gastroesophageal Reflux Disease, Hx Ulcer Sensory History: Denies: Hx Contacts or Glasses Opthamlomology History: Denies: Hx Contacts or Glasses Neurological History: Reports: Hx Headaches - Surgical History Surgery Procedure, Year, and Place: HERNIA REPAIR, RT TOTAL HIP - Immunization History Date of Tetanus Vaccine: Unk Date of Influenza Vaccine: None Infectious Disease History: No Infectious Disease History: Denies: Traveled Outside the [place] in Last 30 Days - Family History Known Family History: Negative: Hypertension, Diabetes Family History: Uncle from stroke, mother with AAA. - Social History Alcohol Use: None Alcohol Amount: pt quit drinking in 1980 Substance Use Type: Reports: Marijuana Substance Use Comment - Amount & Last Used: daily x 50 years Smoking Status (MU): Light Every Day Tobacco Smoker Type: Cigarettes Have You Smoked in the Last Year: Yes Review of Systems Negative: Fever Positive: Abdominal Pain, Vomiting, Nausea, Other - constipation. Negative: Diarrhea All Other Systems Reviewed And Are Negative: Yes Physical Exam - Summary Physical Exam Summary: VITAL SIGNS: Reviewed. GENERAL: Patient is a well-developed and nourished male with poor hygiene who is lying comfortable in the stretcher. Patient is not in any acute respiratory distress. HEAD AND FACE: Normocephalic and atraumatic. EYES: PERRLA, EOMI x 2, No injected conjunctiva. EARS: Hearing grossly intact. Ear canals and tympanic membranes are WNL. MOUTH: oral mucous is dry. NECK: Supple, trachea is midline, no adenopathy, no JVD. CHEST: Symmetric, no tenderness at palpation LUNGS: Clear to auscultation bilaterally. No wheezing or crackles. CVS: sinus tachycardia with irregular rate and rhythm. S1 and S2 present, no murmurs or gallops appreciated. ABDOMEN: Soft, TTP in the epigastrium. No signs of distention. Positive bowel sounds. No rebound no guarding, and no masses palpated. No abdominal bruit or pulsations. EXTREMITIES: FROM in all major joints, no edema, no cyanosis or clubbing. NEURO: Alert and oriented x 3. No acute neurological deficits. Speech is normal. SKIN: Dry and warm Triage Information Reviewed: Yes Vital Signs On Initial Exam: Initial Vitals Temp Pulse Resp BP Pulse Ox 97.6 F 96 16 163/117 96 12/25/17 07:54 12/25/17 07:54 12/25/17 07:54 12/25/17 07:54 12/25/17 07:54 Vital Signs Reviewed: Yes Diagnostics - Vital Signs Vital Signs Temp Pulse Resp BP Pulse Ox 12/25/17 08:14 130 13 183/121 97 12/25/17 08:06 139 97 12/25/17 07:54 97.6 F 96 16 163/117 96 - Laboratory Result Diagrams: 12/25/17 08:24 12/25/17 08:24 Lab Statement: Any lab studies that have been ordered have been reviewed, and results considered in the medical decision making process. - Radiology ABD Xray Radiology Interpretation Completed By: Radiologist Summary of Radiographic Findings: , NO EVIDENCE FOR OBSTRUCTION. ED physician has reviewed this radiology report. - EKG 0822 Cardiac Rate: Other Rate EKG Rhythm: Atrial Fibrillation - Afib/Flutter as 125 BPM 0959 Cardiac Rate: Other Rate EKG Rhythm: Atrial Fibrillation - at 105 BPM Summary of EKG Findings: no STEMI Abdominal Pain Fem Course/Dx - Course Assessment/Plan: This patient is a 67 year old M presenting to [facility] accompanied by a female with a chief complaint of epigastric pain that began last night. The patient rates the pain 8/10 in severity. Patient reports n/v that lasted all night. Patient denies diarrhea and constipation. Last BM was two days ago but states that he does not use the bathroom every day. He states he has been passing gas. Hx HTN, GERD, insomnia, and is a smoker. He smokes marijuana every day and has had these sx in the past. In the ED course the patient was placed in a head of marketing analytics, IV access was obtained and the patient was given Zofran for nausea vomiting and Protonix for the epigastric pain. Patient reports that he has multiple episodes of the epigastric pain is similar nausea vomiting however I believe that the symptoms are secondary to cannabinoids cyclic vomiting syndrome. At this time the patient will comfortable therefore I do not believe that the patient will need an abdominopelvic CT. However if the symptoms worsen we will perform an abdominopelvic CT to rule out any intra-abdominal pathology. EKG shows an atrial fibrillation 125 bpm. Therefore the patient was given Cardizem 20 mg IV. After medications the heart rate is 108 to 115 bpm. Since the patient had a new diagnosis of atrial fibrillation with RVR I discussed my physical exam, findings and test results with Dr. Russo from the hospitalist services who accepted the patient for admission. Patient is hemodynamically stable alert and oriented 3. - Diagnoses Differential Diagnosis/HQI/PQRI: Constipation, Other - Nausea, vomiting, diarrhea, SVT, atrial flutter, atrial fibrillation. Provider Diagnoses: Atrial fibrillation with RVR, Nausea and vomiting - Provider Notifications Discussed Care Of Patient With: Di Russo Time Discussed With Above Provider: 09:52 Instructed by Provider To: Admit As Inpatient Discharge - Sign-Out/Discharge Documenting (check all that apply): Patient Departure - admitted - Discharge Plan Condition: Fair Disposition: ADMITTED TO [facility] - Billing Disposition and Condition Condition: FAIR Disposition: Admitted to [facility] - Attestation Statements Document Initiated by Scribe: Yes Documenting Scribe: Arnaud Rosenbaum Provider For Whom Scribe is Documenting (Include Credential): Kt Thurman MD Scribe Attestation: I, Arnaud Rosenbaum , scribed for Kt Thurman MD on 12/25/17 at 1821. Scribe Documentation Reviewed: Yes Provider Attestation: The documentation as recorded by the scribe, Arnaud Rosenbaum accurately reflects the service I personally performed and the decisions made by me, Kt Thurman MD
[2017-12-25 08:42] LABS: INR 0.97 (0.77-1.02)
[2017-12-25 08:55] LABS: EGFR Non-African American 93.4 (>60)
[2017-12-25] MEDS ORDERED: Diltiazem IV* 5 MG/ML 5 ML VIAL (for loading dose/IV Push) (25 MG) IV SLOW PU ONE (09:44)
[2017-12-25] MEDS ORDERED: Pantoprazole IV* 40 MG IV ONE (09:45)
[2017-12-25] MEDS ORDERED: Magnesium Sulfate 2 GM IV* 2 GM/50 ML BAG IVPB ONE (09:52)
[2017-12-25] MEDS ORDERED: Metoclopramide IV* 5 MG/ML 2 ML VIAL IV ONE (10:50)
[2017-12-25] MEDS ORDERED: Acetaminophen TAB* 325 MG PO PRN (11:24)
[2017-12-25] MEDS ORDERED: NS 0.9% 1000 ML* 1,000 ML IV SCH (11:30)
[2017-12-25] MEDS ORDERED: Enoxaparin(*) 80 MG/0.8 ML SYR SUBCUT SCH (12:00)
[2017-12-25] MEDS: Ondansetron INJ* 2 MG/ML VIAL IV PRN ×2 (13:29→22:10)
[2017-12-25] MEDS: Nicotine PATCH 21 MG/24 HR* PATCH TRANSDERM SCH (13:30)
[2017-12-25 13:33] LABS: Urine Appearance Clear; Urine Blood 2+ (Negative); Urine Color Yellow; Urine Ketones 1+ (Negative); Urine Protein Negative (Negative); Urine Red Blood Cell 2+(6-10/hpf) (Absent); Urine Urobilinogen Negative (Negative); Urine White Blood Cell Trace(0-5/hpf) (Absent)
[2017-12-25] MEDS: Metoprolol Tartrate TAB* 25 MG PO SCH ×2 (14:20→20:25)
[2017-12-25] MEDS: amLODIPine TAB* 5 MG PO SCH (14:20)
[2017-12-25] MEDS: Sucralfate TAB* 1 GM PO SCH ×2 (14:53→20:24)
--- NOTE | 2017-12-25 16:50 | HP ---
CONTINUATION ADDENDUM NOW INCLUDED ON THIS REPORT CC: Primary Care Provider, Mino Demarco MD * HISTORY AND PHYSICAL: DATE OF ADMISSION: 12/25/17 PRIMARY CARE PROVIDER: Dr. Demarco. CHIEF COMPLAINT: Nausea, vomiting, and abdominal pain. HISTORY OF PRESENT ILLNESS: Chavo Jiang is a 67-year-old male with history of hypertension, who presented to the hospital after sudden onset of nausea and vomiting in the middle of the night. The patient stated that he vomited "several times." He complains of epigastric pain and that had gotten better after his treatment in the emergency department. He was noted to be in AFib/ flutter with heart rate in 120s when he arrived. The patient denies any chest pain, sensation of palpitations, or rapid heartbeat. He denies any shortness of breath and he stated that he never had issues with his heart. He received Cardizem 20 mg IV bolus and his heart rate currently is in the 70s and he appears to be in normal sinus rhythm. The patient states that he smokes marijuana several times a day, at least 4, but he was not aware of the association of marijuana and problems with marijuana -induced emesis in the past. He was hospitalized in 2017 for intractable nausea and vomiting also. The patient is going to be placed on overnight observation on telemetry monitored bed with a diagnosis of paroxysmal atrial fibrillation and nausea and vomiting. PAST MEDICAL HISTORY: 1. History of hypertension. 2. History of gastroesophageal reflux disease. MEDICATIONS AT HOME: Include: 1. Trazodone 100 mg at bedtime. 2. Amlodipine 2.5 mg daily. 3. Pravastatin 20 mg daily. 4. Omeprazole 40 mg daily. 5. Lisinopril 20 mg daily. ALLERGIES: Include AMBIEN. FAMILY HISTORY: Positive for mother with brain aneurysm and father unknown. SOCIAL HISTORY: The patient has smoked half-a-pack a day of cigarettes ever since he was a teenager. He used alcohol excessively, but he stopped in the . He smokes marijuana several times a day. He lives with his , who is his healthcare proxy. He used to work at a dairy farm. REVIEW OF SYSTEMS: Positive for nausea and vomiting several times in the past 12 hours. Positive for epigastric pain. Negative for diarrhea. The patient stated that he had a bowel movement that was well formed and regular today in the morning. The patient denies shortness of breath or chest pain or palpitations. All the remaining 12 systems were reviewed with the patient and were otherwise negative. PHYSICAL EXAMINATION GENERAL: The patient is a very pleasant 67-year-old male who appears rather disheveled, but otherwise in no acute distress. Alert, awake, and oriented x3. VITAL SIGNS: Blood pressure of 165/110, heart rate of 83 and regular, respiratory rate 19, oxygen saturation 95% on room air, temperature of 97.6. HEENT: Head: Atraumatic, normocephalic. Eyes: Pupils are equal, reactive to light and accommodation. Oropharynx is clear. Mucosa dry. NECK: Supple. No JVD. No bruits bilaterally. RESPIRATORY: Clear to auscultation bilaterally. CARDIOVASCULAR: Regular rate and rhythm. No murmur. ABDOMEN: Soft, minimally tender in the epigastric region with no rebound and no guarding. Bowel sounds are present in all 4 quadrants. EXTREMITIES: There is no edema. Pulses are +2 bilaterally. No clubbing or cyanosis. NEUROLOGIC: Speech is clear. Cranial nerves II through XII grossly intact. Motor strength is 5/5 bilaterally. PSYCHIATRIC: Oriented x3 with no evidence of anxiety or depression. SKIN: On evaluation of the skin, the patient is rather disheveled and dirty, but no evidence of lesions or wounds or rashes were noted. DIAGNOSTIC STUDIES/LAB DATA: Laboratory data showed white blood cell count of 13.5, hemoglobin of 16.0, hematocrit of 46, and platelets of 296. Sodium was 134, potassium 3.7, chloride 100, carbon dioxide 23, BUN 13, creatinine 0.82. Liver function tests unremarkable. C-reactive protein is mildly elevated at 41. Magnesium low at 1.7. TSH pending. Urinalysis is pending at the time of dictation. Urine drug screen is also pending at the time of dictation. The patient's initial EKG showed AFib/flutter with a heart rate of 125 beats per minute. The most recent EKG shows normal sinus rhythm with a heart rate of 61 beats per minute with no significant ST changes. The patient had an abdominal x-ray performed today, which was read by the radiologist as "no evidence for obstruction." ASSESSMENT AND PLAN: A 67-year-old male who has episodic nausea and vomiting. At this point, his pain is mild and likely related to gastritis and vomiting. I suspect and I assured it with the patient that it is cannabis-induced emesis. The patient is going to be placed on clear liquid diet and advance as tolerated. CONTINUATION ADDENDUM: ASSESSMENT AND PLAN: 1. The patient's elevated CRP is likely due to ongoing GI problem/gastritis. 2. In regards to the patient's transient atrial fibrillation, the patient converted after 20 mg of IV Cardizem was administered in the ED and his magnesium was replaced. It appears that the patient was asymptomatic when it occurred. It must have been a transient episode likely vagally induced due to nausea and vomiting. We will continue observing the patient on telemetry monitored bed for that. Start him on a low dose beta-charan and continue his Norvasc, but hold his lisinopril. His lisinopril may need to be added on if his blood pressures continued to be uncontrolled. His JUANITA score is 1. At this point, unless the patient's atrial fibrillation recurs, he is not going to be placed on anticoagulation. We will start him on a low dose of aspirin once he tolerates food. 3. For DVT prophylaxis, the patient received 1 dose of full anticoagulation with Lovenox today and that will treat for DVT prophylaxis for the time being. 4. The patient's code status is full and his surrogate is his , Edie. TIME SPENT: Approximately 65 minutes was spent on admission of this patient, more than half of that time was spent [id number] with the patient during the interview and physical exam. [id number] #: [id number]/CPS #: [id number] [place]
--- NOTE | 2017-12-25 19:35 | HP ---
CC: Primary Care Provider HISTORY AND PHYSICAL: ADDENDUM: ASSESSMENT AND PLAN: 1. The patient's elevated CRP is likely due to ongoing GI problem/gastritis. 2. In regards to the patient's transient atrial fibrillation, the patient converted after 20 mg of IV Cardizem was administered in the ED and his magnesium was replaced. It appears that the patient was asymptomatic when it occurred. It must have been a transient episode likely vagally induced due to nausea and vomiting. We will continue observing the patient on telemetry monitored bed for that. Start him on a low dose beta-charan and continue his Norvasc, but hold his lisinopril. His lisinopril may need to be added on if his blood pressures continued to be uncontrolled. His JUANITA score is 1. At this point, unless the patient's atrial fibrillation recurs, he is not going to be placed on anticoagulation. We will start him on a low dose of aspirin once he tolerates food. 3. For DVT prophylaxis, the patient received 1 dose of full anticoagulation with Lovenox today and that will treat for DVT prophylaxis for the time being. 4. The patient's code status is full and his surrogate is his , Edie. TIME SPENT: Approximately 65 minutes was spent on admission of this patient, more than half of that time was spent [id number] with the patient during the interview and physical exam. [id number]/[facility] #: [id number] [place]
[2017-12-25] MEDS ORDERED: traZODone TAB* 100 MG PO SCH (21:00)
[2017-12-25] MEDS: Morphine VIAL* 4 MG/ML VIAL (1 ml vial) IV PRN (22:10)
[2017-12-26] MEDS ORDERED: Al Hydrox/Mg Hydrox/Simet LIQ* 30 ML UDC PO PRN (01:13)
[2017-12-26] MEDS: Morphine VIAL* 4 MG/ML VIAL (1 ml vial) IV PRN ×2 (03:08→11:44)
[2017-12-26 05:36] LABS: ABS Basophils 0.1 10^3/ul (0-0.2); ABS Eosinophils 0 10^3/ul (0-0.6); ABS Lymphocytes 1.3 10^3/ul (1.0-4.8); ABS Monocytes 0.8 10^3/ul (0-0.8); ABS Nucleated RBC 0 10^3/ul; Eosinophil % 0.2 % (0-6); Hematocrit 45 % (42-52); Hemoglobin 15.4 g/dl (14.0-18.0); Lymphocyte % 11.3 % (25-47); Mean Corpuscular HGB Conc 34 g/dl (31-36); Mean Corpuscular Hemoglobin 32 pg (27-31); Mean Corpuscular Volume 95 fL (80-94); Mean Platelet Volume 7.8 fL (7.4-10.4); Nucleated Red Blood Cells % 0.2; Platelet Count 270 10^3/ul (150-450); Red Blood Count 4.77 10^6/ul (4.00-5.40); Red Cell Distribution Width 14 % (10.5-15); White Blood Count 11.1 10^3/ul (3.5-10.8)
[2017-12-26 06:17] LABS: EGFR Non-African American 105.2 (>60)
[2017-12-26] MEDS ORDERED: hydrALAZINE IV* 20 MG/ML VIAL IV SLOW PU PRN (07:43)
[2017-12-26] MEDS: Sucralfate TAB* 1 GM PO SCH (08:02)
[2017-12-26] MEDS: Nicotine PATCH 21 MG/24 HR* PATCH TRANSDERM SCH (08:02)
[2017-12-26] MEDS: Metoprolol Tartrate TAB* 25 MG PO SCH (08:03)
[2017-12-26] MEDS: amLODIPine TAB* 5 MG PO SCH (08:03)
--- NOTE | 2017-12-26 08:32 | ECHO ---
Patient: CITLALI QUIROGA [facility] Rec#: [id number] : 1950 Date: 12/25/2017 Age: 67y Height: 160 cm / 63.0 in Weight: 73 kg / 160.9 lbs Sex: M BSA: 1.8 Room#: 438 Admit Date#: 12/25/2017 Type: Inpatient Referring: Di Russo MD Reading: Jair Rossi DO [employer] Specialist: Octavia Batista RN RDCS CC: Mino Demarco MD Transthoracic Echocardiogram Indication: Abnormal EKG, PAF BP: 167/104 HR: 71 Rhythm: NSR Findings History: HTN, smoker, marijuana use. Technical Comments: The study is technically limited due to patient body habitus. The study is technically limited due to the patient's smoking history. Completed at 1640. Left Ventricle: The left ventricular chamber size is normal. Mild concentric left ventricular hypertrophy is observed. Global left ventricular wall motion and contractility are within normal limits. There is normal left ventricular systolic function. The estimated ejection fraction is 60-65%. Abnormal left ventricular diastolic function is observed. Left Atrium: The left atrium is mildly dilated. Right Ventricle: The right ventricular chamber size and systolic function are within normal limits. Right Atrium: The right atrium is slightly dilated. Aortic Valve: The aortic valve is trileaflet. The aortic valve leaflets are mildly thickened. Mild aortic leaflet calcification is visualized. There is mild aortic regurgitation. There is no evidence of aortic stenosis. Mitral Valve: Mild mitral annular calcification present. The mitral valve leaflets are mildly thickened. There is mild mitral regurgitation. There is no evidence of mitral stenosis. Tricuspid Valve: The tricuspid valve leaflets are normal. There is trace to mild tricuspid regurgitation. Unable to estimate the right ventricular systolic pressure. There is no tricuspid stenosis. Pulmonic Valve: The pulmonic valve appears normal. There is a trace pulmonic regurgitation. There is no pulmonic stenosis. Pericardium: There is no significant pericardial effusion. Aorta: There is mild dilatation of the ascending aorta. There is no dilatation of the aortic arch. There is mild dilatation of the aortic root. Pulmonary Artery: The main pulmonary artery is not well visualized. Venous: The inferior vena cava appears normal in size. There is an approximate 50% respiratory change in the inferior vena cava dimension. Conclusions The left ventricular chamber size is normal. Mild concentric left ventricular hypertrophy is observed. Global left ventricular wall motion and contractility are within normal limits. There is normal left ventricular systolic function. The estimated ejection fraction is 60-65%. The left atrium is mildly dilated. The right ventricular chamber size and systolic function are within normal limits. No more than mild valvular regurgitation noted. There is mild dilatation of the aortic root and ascending aorta None prior for comparison at time of interpretation. Measurements Name Value Normal Range RVIDd (AP) 2D 3 cm (0.9 - 2.6) RVDdMajor (2D) 2.9 cm (2.2 - 4.4) RAd ISD 4CH 5 cm (3.4 - 4.9) RA (A4C)W 3.6 cm (2.9 - 4.6) IVSd (2D) 1.3 cm (0.6 - 1) LVPWd (2D) 1.1 cm (0.6 - 1) LVIDd (2D) 4.3 cm (3.6 - 5.4) LVIDs (2D) 3 cm - Aortic Annulus 2.1 cm (1.4 - 2.6) Ao root diameter (2D) 3.8 cm (2.1 - 3.5) Ascending Ao 3.6 cm (2.1 - 3.4) Aortic arch 3.3 cm (1.8 - 3.4) LA dimension (AP) 2D 3.5 cm (2.3 - 3.8) LAd ISD 4CH 5.1 cm (2.9 - 5.3) LA ISD 4CH W 3.8 cm (2.5 - 4.5) Name Value Normal Range LA ESV BP (A/L) index 30 ml/m2 - Name Value Normal Range MV E-wave Vmax 0.83 m/sec - MV deceleration time 222 msec - MV A-wave Vmax 1.1 m/sec - MV E:A ratio 0.8 ratio - LV septal e' Vmax 0.06 m/sec - LV lateral e' Vmax 0.06 m/sec - LV E:e' septal ratio 13.8 ratio - LV E:e' lateral ratio 13.8 ratio - Name Value Normal Range AV Vmax 1.3 m/sec - AV VTI 30.3 cm - AV peak gradient 7 mmHg - AV mean gradient 4 mmHg - LVOT diameter 2 cm - LVOT Vmax 0.97 m/sec - LVOT VTI 19.6 cm - LVOT peak gradient 4 mmHg - LVOT mean gradient 2 mmHg - MERRY Vmax 0.55 m/sec - Name Value Normal Range IVC diameter 1.2 cm - Name Value Normal Range PV Vmax 0.73 m/sec -
[2017-12-26] MEDS ORDERED: Lisinopril TAB* 10 MG PO SCH (09:00)
[2017-12-26] MEDS ORDERED: Omeprazole CAP* 20 MG PO SCH (09:00)
[2017-12-26] MEDS ORDERED: Aspirin 81 mg CHEW TAB* 81 MG TAB.CHEW PO SCH (10:00)
[2017-12-26 13:45] VITALS: BP 157/91
[2017-12-26] MEDS ORDERED: Regadenoson* 0.4 MG/5 ML SYRINGE ONE (13:45)
--- NOTE | 2017-12-27 12:38 | DS ---
CC: Dr. Demarco * DISCHARGE SUMMARY: DATE OF ADMISSION: 12/25/17 DATE OF DISCHARGE: 12/26/17 PRIMARY CARE PROVIDER: Dr. Demarco. DISCHARGE DIAGNOSES: 1. Intractable nausea and vomiting, likely cannabis induced. 2. Paroxysmal atrial fibrillation, 1 episode that occurred while vomiting, likely related to vagal response/vagal mediated in a patient who had hypomagnesemia and converted after dose of Cardizem IV. 3. Indeterminate troponin of 0.04. PAST MEDICAL HISTORY: 1. History of hypertension. 2. History of gastroesophageal reflux disease. MEDICATIONS AT DISCHARGE: Include: 1. Trazodone 100 mg at bedtime. 2. Amlodipine 2.5 mg daily. 3. Pravastatin 20 mg daily. 4. Omeprazole 40 mg daily. 5. Lisinopril 20 mg daily 6. Metoprolol tartrate 25 mg b.i.d. LABORATORY DATA AND STUDIES DURING THE HOSPITAL STAY: Included: On 12/25/17, white blood cell count of 11.1, hemoglobin of 15.4, hematocrit of 45, and platelets of 270. Sodium was 135, potassium 3.9, chloride 102, carbon dioxide 23, BUN 12, creatinine 0.74. The patient's TSH was 1.17 at admission. The patient's cardiac stress test noted on 12/26/17 showed good exercise capacity with a small area of inferior apical reversibility suggestive of a small area of ischemia in the correct clinical setting. The EF was noted to be 57% and was assessed as low risk. The patient's magnesium at admission was 1.7. HOSPITALIZATION COURSE: Chavo Jiang is a 67-year-old male with history of frequent cannabis use, who presented to the hospital complaining of intractable nausea and vomiting. There was a similar presentation approximately a year ago. The patient was not aware that cannabis can induce emesis. When he was noted to be vomiting, he also was in atrial fibrillation with the heart rate into 120s and converted into a sinus rhythm after a dose of Cardizem IV 21 mg x1. The patient also was hypomagnesemic when he was in atrial fibrillation. He denies any chest pain or shortness of breath. The patient was placed on overnight observation. His nausea, vomiting resolved after a mild rehydration. He continues to be in telemetry monitored bed with no evidence of any further cardiac arrhythmias. His troponin stabilized to 0.04. He never had chest pain or shortness of breath. His magnesium at the time of discharge was replaced to a level of 1.9. Due to his indeterminate troponin and atrial fibrillation, a cardiac stress test was performed which showed low risk but possibility of a small ischemia at the apex. The patient was informed about possibility of small area of ischemia. Nevertheless, he never had chest pain or symptoms of coronary artery disease prior to presentation to the ED with nausea and vomiting. I suspect that the area may be artifactual. Nevertheless, the patient was recommended to continue his baby aspirin that he takes [id number] at home, as well as continue with his current medications in addition to a beta charan that was prescribed and he had tolerated it well during the hospital stay. The patient is recommended to follow with his primary care provider in approximately 4 to 7 days. Please note that the patient CHADS score was 1, which did not necessitate anticoagulation in this patient who likely had vagally-mediated episode of atrial fibrillation that was transient and resolved. PHYSICAL EXAMINATION AT THE TIME OF DISCHARGE: Blood pressure 144/82, heart rate of 51 and regular, respiratory rate 16, oxygen saturation 97% on room air, temperature 98.7. General: The patient is a very pleasant 67-year-old male who is in no acute distress. Alert, awake, oriented x3. HEENT: Head atraumatic, normocephalic. Eyes: Pupils were equal and reactive to light and accommodation. Oropharynx is clear. Mucosa moist. Neck: Supple. No JVD. No bruits bilaterally. Cardiovascular: Regular rate and rhythm. No murmur. Respiratory: Clear to auscultation bilaterally. Abdomen: Soft, nontender. Bowel sounds present in all 4 quadrants. Extremities: There is no edema. Pulses +2 bilaterally. There is no clubbing or cyanosis. Neuro Evaluation: Nonfocal. Cranial nerves II through XII grossly intact. Motor strength is 5/5 in bilaterally. Please note that the patient also had transthoracic echocardiogram performed which showed mild concentric LVH with EF of 60% to 65% and mild dilatation of the aortic root and ascending aorta. There is mild valvular regurgitation noted. Please note that this is a short summary of the patient's hospital stay. Please refer to further medical records for details. [id number]/CPS #: [id number] [facility]
== END 2017-12-26 16:45 | disposition home or self-care (01) ==
LOC: ED 07:53 → MEDTELE 11:22
PROVIDERS: ADMIT Internal Medicine; ATTEND Internal Medicine
DX: R11.2 Nausea with vomiting, unspecified (principal); I48.0 Paroxysmal atrial fibrillation; I10 Essential (primary) hypertension; K21.9 Gastro-esophageal reflux disease without esophagitis; F17.210 Nicotine dependence, cigarettes, uncomplicated
CPT/HCPCS: 36415; 74019; 78452; 80048; 80053; 80307; 81003; 81015; 82150; 83605; 83690; 83735; 84443; 84484; 85025; 85610; 85730; 86140; 87086; 93005; 93017; 93306; 96361; 96374; 96375; 96376; 99284; A9270-GY; A9502; G0378; J1650; J2270; J2405; J2765; J2785; J3475